=== PATIENT | male | born 2000 | race Hispanic/Latino ===

== ENCOUNTER 2018-11-15 17:26 | Emergency (ER) | payer OTHER ==
[~2018-11-15] VITALS: Ht 170.2 cm; Wt 79.9 kg
[2018-11-15] MEDS ORDERED: LIDOCAINE 1% MDV 20ML VIAL IM ONE (19:45)
[2018-11-15] MEDS ORDERED: IBUPROFEN 600 MG TAB PO ONE (19:45)
[2018-11-15 20:34] VITALS: BP 135/69
== END 2018-11-15 20:46 | disposition home or self-care (01) ==
LOC: M ED 17:26
DX: S01.411A Laceration without foreign body of right cheek and temporomandibular area, initial encounter (principal); W20.8XXA Other cause of strike by thrown, projected or falling object, initial encounter; Y92.89 Other specified places as the place of occurrence of the external cause; Y93.9 Activity, unspecified; Y99.1 Military activity

== ENCOUNTER 2022-02-16 08:57 | Day surgery (SDC) | payer OTHER ==
[~2022-02-16] VITALS: Ht 170.2 cm; Wt 98.2 kg
[2022-02-16 09:45] LABS: BASO % 0.3 % (0.0-1.0); EOS # 0.2 10^3/uL (0.0-0.5); EOS % 1.4 % (0.0-3.0); HEMATOCRIT 46.5 % (42.0-52.0); HEMOGLOBIN 15.3 g/dl (13.5-17.5); LYMPH # 1.2 10^3/uL (1.5-5.0); LYMPH % 9.3 % (24.0-44.0); MEAN CORPUSCULAR HEMOGLOBIN 26.8 pg (27.0-33.0); MEAN CORPUSCULAR HGB CONC 32.9 g/dl (32.0-36.5); MEAN CORPUSCULAR VOLUME 81.4 fl (80.0-96.0); MONO # 0.9 10^3/uL (0.0-0.8); MONO % 7.1 % (2.0-8.0); NEUTROPHILS # 10.2 10^3/uL (1.5-8.5); NEUTROPHILS % 81.6 % (36.0-66.0); PLATELET COUNT, AUTOMATED 230 10^3/uL (150-450); RED BLOOD COUNT 5.71 10^6/uL (4.30-6.10); WHITE BLOOD COUNT 12.5 10^3/uL (4.0-10.0)
[2022-02-16 10:12] LABS: ALBUMIN 4.4 G/DL (3.2-5.2); BILIRUBIN,DIRECT 0.3 MG/DL (<0.4); BILIRUBIN,TOTAL 0.7 MG/DL (0.3-1.2); TOTAL PROTEIN 7.8 G/DL (5.7-8.2)
[2022-02-16] MEDS ORDERED: ONDANSETRON 4MG 2ML VIAL IV ONE ×2 (10:30→16:30)
[2022-02-16] MEDS ORDERED: cefTRIAXone SOD 1 GM in D5W MINI-BAG PLUS 50 ML IV ONE (10:30)
[2022-02-16] MEDS ORDERED: MORPHINE 4 MG/ML 1ML VIAL IV ONE ×2 (10:30→16:30)
[2022-02-16] MEDS ORDERED: NS 1,000 ML IV ONE (10:30)
[2022-02-16] MEDS ORDERED: ISOVUE-370 76% 100ML VIAL As Ordered ONE (10:37)
[2022-02-16] MEDS ORDERED: metroNIDAZOLE 500 MG in IV 1 EA IV ONE (11:35)
[2022-02-16] MEDS ORDERED: MORPHINE 2 MG/ML 1ML VIAL IV ONE (11:50)
[2022-02-16 12:07] LABS: RSV AMPLIFICATION NEGATIVE (NEGATIVE)
[2022-02-16] MEDS ORDERED: ACETAMINOPHEN 1000MG 100ML IV BAG IV ONE (12:30)
[2022-02-16] MEDS ORDERED: CALC500T38 PO (14:08)
[2022-02-16] MEDS ORDERED: VITA100093 PO (14:08)
[2022-02-16] MEDS ORDERED: IBUP200T46 PO (14:08)
[2022-02-16] MEDS ORDERED: HOME MED LIST COMPLETE! XX SCH (14:10)
[2022-02-16] MEDS ORDERED: BUPIVACAINE/EPIN 0.25% 30ML VIAL As Ordered ONE (17:06)
[2022-02-16] MEDS ORDERED: propofoL 200 MG/20 ML VIAL As Ordered ONE (17:08)
[2022-02-16] MEDS ORDERED: KETOROLAC 60MG 2ML VIAL As Ordered ONE (17:08)
[2022-02-16] MEDS ORDERED: SUCCINYLCHOLINE 100 MG/5 ML SYRINGE (J0330) As Ordered ONE (17:08)
[2022-02-16] MEDS ORDERED: ROCURONIUM BROMIDE 50 MG/5 ML VIAL As Ordered ONE (17:08)
[2022-02-16] MEDS ORDERED: METOCLOPRAMIDE INJ 10MG/2ML VIAL As Ordered ONE (17:08)
[2022-02-16] MEDS ORDERED: SUGAMMADEX SODIUM 500 MG/5 ML VIAL (BRIDION) As Ordered ONE (17:08)
[2022-02-16] MEDS ORDERED: LIDOCAINE 2% 100MG/5ML SDV (FOR ANES.) As Ordered ONE (17:08)
[2022-02-16] MEDS ORDERED: MIDAZOLAM INJ 2MG/2ML VIAL (J2250 PER 1MG) As Ordered ONE (17:09)
[2022-02-16] MEDS ORDERED: fentaNYL 100 MCG/2 ML INJECTION As Ordered ONE (17:10)
[2022-02-16] MEDS ORDERED: ACETAMINOPHEN TAB 650MG DOSE (2X325MG) PO PRN (18:20)
[2022-02-16] MEDS ORDERED: NORCO, ANEXSIA 5/325MG TABLET (HYDROcodone/ACETAMINOPHEN) PO PRN (18:20)
[2022-02-16] MEDS ORDERED: ONDANSETRON 4MG 2ML VIAL IV PRN ×2 (18:20→18:35)
[2022-02-16] MEDS ORDERED: LR 1,000 ML IV SCH (18:35)
[2022-02-16] MEDS ORDERED: fentaNYL 100 MCG/2 ML INJECTION IV PRN (18:35)
[2022-02-16] MEDS ORDERED: oxyCODONE 5MG TAB PO PRN (18:35)
[2022-02-16] MEDS: HYDROMORPHONE HCL 0.5 MG/ 0.5 ML SYRINGE (J1170 PER 1) IV PRN ×2 (18:38→18:43)
[2022-02-16] MEDS: NS 1,000 ML IV SCH (19:20)
[2022-02-16] MEDS: PIPERACILLIN/TAZOBACTAM SOD 3.375 GM in D5W MINI-BAG PLUS 50 ML IV SCH (19:21)
[2022-02-16 20:00] VITALS: BP 133/67
[2022-02-16 20:30] VITALS: BP 133/66
[2022-02-16 21:00] VITALS: BP 132/77
[2022-02-16 22:00] VITALS: BP 129/74
[2022-02-16 23:00] VITALS: BP 124/74
[2022-02-17] VITALS: BP 125/73
[2022-02-17] MEDS: KETOROLAC 30 MG/ML 1ML VIAL IV PRN ×2 (00:04→07:45)
[2022-02-17 01:00] VITALS: BP 112/61
[2022-02-17] MEDS: NS 1,000 ML IV SCH (02:12)
[2022-02-17] MEDS: PIPERACILLIN/TAZOBACTAM SOD 3.375 GM in D5W MINI-BAG PLUS 50 ML IV SCH ×2 (02:12→07:45)
[2022-02-17 05:00] VITALS: BP 111/59
[2022-02-17 06:57] LABS: BASO % 0.2 % (0.0-1.0); HEMATOCRIT 41.8 % (42.0-52.0); HEMOGLOBIN 13.7 g/dl (13.5-17.5); LYMPH # 1.1 10^3/uL (1.5-5.0); LYMPH % 7.3 % (24.0-44.0); MEAN CORPUSCULAR HEMOGLOBIN 26.8 pg (27.0-33.0); MEAN CORPUSCULAR HGB CONC 32.8 g/dl (32.0-36.5); MEAN CORPUSCULAR VOLUME 81.6 fl (80.0-96.0); MONO # 1.1 10^3/uL (0.0-0.8); MONO % 7.2 % (2.0-8.0); NEUTROPHILS # 12.6 10^3/uL (1.5-8.5); NEUTROPHILS % 84.6 % (36.0-66.0); PLATELET COUNT, AUTOMATED 204 10^3/uL (150-450); RED BLOOD COUNT 5.12 10^6/uL (4.30-6.10); WHITE BLOOD COUNT 14.9 10^3/uL (4.0-10.0)
[2022-02-17] MEDS ORDERED: AMOX875T2 PO (08:44)
[2022-02-17 10:00] VITALS: BP 129/73
== END 2022-02-17 10:43 | disposition home or self-care (01) ==
LOC: M ED 08:57 → M SDC 08:58 → UNDOADMIN 18:19 → M ED INP 18:19 → M MSPAV 20:00 → M ED INP 20:00 → M MSPAV 20:00 → M SDC 02-17 10:43 → UNDODISIN 02-17 10:43
PROVIDERS: ATTEND Surgery
DX: K35.890 Other acute appendicitis without perforation or gangrene (principal)
CPT/HCPCS: 36415; 44970; 74177; 80047; 80076; 81002; 83605; 83690; 85025; 87040; 87631; 88304; 96361; 96365; 96366; 96367; 96375; 96376; 99284; J0131; J0330; J0696; J1100; J1170; J1885; J2250; J2270; J2405; J2543; J2765; J3010